=== PATIENT | female | born 2000 | race Caucasian/White ===

== ENCOUNTER 2023-10-18 11:45 | Outpatient (AMB) | payer OTHER, SELFPAY ==
--- NOTE | 2023-10-18 12:01 | A.OFFPC_ITS ---
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 Is last menstrual period known: Yes Last menstrual period: 10/03/23 Allergies No Known Allergies Allergy (Verified 10/18/23 12:08) Medication List - Last Reconciled 10/18/23 by Pablo Leonard MD levonorgestrel-ethinyl estrad 0.1-20 mg-mcg (Sronyx) tabs PO Tobacco use date assessed: 10/18/23 Dental Screening Dental Screen Date: 10/18/23 Did you have a dental visit in the last 12 months?: Yes Did you have a dental problem in the last 6 months where you did not have access to dental care?: No Was dental information given to patient?: Patient has dentist HPI ASSOCIATE PROGRAM MANAGER/Preventative Care HPI Details New Patient? ?? Prior PCP:?Karoline Hassan Last office visit/CPE:? a few mos. CPE > 1 yr Acute issue(s):? Low back pain. x 1 yr ?? PMHx:? Back pain. SurgHx:?None FHx:? Mom: DM, Graves. Dad: unknown. Sister mental health. 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 Uses Zin Nicotine. EtOH Rarely 1 gl wine weekly. No drugs PFSH Medical History (Updated 10/18/23 @ 12:46 by Lev Rodriguez) No pertinent past medical history Surgical History (Updated 10/18/23 @ 12:11 by Sharmin Soto CMA) No pertinent past surgical history Family History (Updated 10/18/23 @ 12:12 by Sharmin Soto CMA) Mother Diabetes Graves disease Sister Mental health disorder Social History (Updated 10/18/23 @ 12:15 by Sharmin Soto CMA) Household Members: Significant Other Both parents involved: No Caregiver staying overnight: No Housing: Apartment Are you a primary pet care worker to a significant other at home: No Do you presently have visiting nurse or other home services: No 75 years or older and lives alone: No Alcohol intake: current Alcohol intake frequency: other Comment: once a week Patient Tobacco Use Status: Former Tobacco user e-Cigarette/Vaping Use: Former Use Use of substances other than those prescribed or required for medical reasons: No Have you been hit, kicked, punched, or otherwise hurt by someone within the past year? If so, by whom?: No Do you feel safe in your current relationship?: Yes Is there a partner from a previous relationship who is making you feel unsafe now?: No Are you made to feel afraid or neglected: No Agree to transfusion: Yes Are you DNR?: No Advance Directives: No Advance Directives Information Provided: No Advance Directives on File: No Healthcare Proxy: No service: Yes Current occupational status: employed Cognitive needs: No Hearing needs: No Vision needs: Yes (Patient wears glasses.) Female Reproductive History Menstrual Date of last menstrual period: 10/03/23 Questionnaire PHQ-9 Over the last 2 weeks, how often have you been bothered by any of the following problems? 1. Little interest or pleasure in doing things: not at all 2. Feeling down, depressed, or hopeless: not at all 3. Trouble falling or staying asleep, or sleeping too much: not at all 4. Feeling tired or having little energy: not at all 5. Poor appetite or overeating: not at all 6. Feeling bad about yourself - or that you are a failure or have let yourself or your family down: not at all 7. Trouble concentrating on things, such as reading the newspaper or watching television: not at all 8. Moving or speaking so slowly that other people could have noticed. Or the opposite - being so fidgety or restless that you have been moving around a lot more than usual: not at all 9. Thoughts that you would be better off or of hurting yourself in some way: not at all Total score: 0 Depression Screening Interpretation: Negative Depression Screening Done: Yes 01449 - PHQ-9 Billing: Yes Source: Developed by Drs. Davon Boyd, Bella Draper, Bucky Turcios and colleagues, with an educational chemo from [employer]. Thrive Questionnaire Date Thrive assessed: 10/18/23 I am a: Patient What is your living situation today?: I have a steady place to live Within the past 12 months, did the food you bought not last and you didn't have the money to get more?: Never true Within the past 12 months, did you worry whether your food would run out before you got money to buy more?: Never true Do you have trouble paying for medicines?: No Do you have trouble getting transportation to medical appointments?: No Do you have trouble paying your heating and electricity bill?: No Do you have trouble taking care of your child, family member or friend?: No Do you have trouble with day-to-day activities such as bathing, preparing meals, shopping, managing finances, etc.?: No Are you currently unemployed and looking for a job?: No Are you interested in more education?: Yes THRIVE Score: 0 AUDIT C Alcohol Use Questionnaire (AUDIT-C) 1. How often do you have a drink containing alcohol?: 2-3 times a week (once a week) 2. How many drinks containing alcohol do you have on a typical day when you are drinking?: 1 or 2 3. How often do you have six or more drinks on one occasion?: Never Total Score: 3 GUNNER-7 AMB Questionnaire GUNNER-7 Date GUNNER - 7 assessed: 10/18/23 Feeling nervous, anxious, or on edge: 0 = Not at all Not being able to stop or control worryin = Not at all Worrying too much about different things: 0 = Not at all Trouble relaxin = Not at all Being so restless that it is hard to sit still: 0 = Not at all Becoming easily annoyed or irritable: 0 = Not at all Feeling afraid as if something awful might happen: 0 = Not at all Total GUNNER-7 score (0-4 normal; 5-9 mild; 10-14 moderate; 15-21 severe): 0 Source: Developed by Drs. Davon Boyd, Bella Draper, Bucky Turcios and colleagues, with an educational chemo from [employer]. GUNNER-7 Assessment Billing GUNNER-7 Assessment Tool: GUNNER-7 Assessment 54260 Review of Systems Const Denies chills, Denies fatigue, Denies fever(s), Denies headache(s) and Denies weakness ENT Denies dizziness and Denies headache(s) Card Denies dyspnea Resp Denies cough, Denies dyspnea, Denies wheezing and Denies other (shortness of breath) Musc Reports back pain, Denies numbness and Denies tingling Neuro Denies dizziness, Denies headache(s), Denies numbness, Denies tingling and Denies weakness Psych Denies anxiety and Denies depression Endo Denies fatigue Aller/Immun Denies wheezing Physical exam (Primary Care) Vital Signs: Last Vital Signs Pulse 69 10/18/23 12:04 BP 118/68 10/18/23 12:04 Pulse Ox 100 10/18/23 12:04 Oxygen Delivery Method Room Air 10/18/23 12:04 BMI result Body Mass Index 20.1 Tobacco/Smoking Status: Tobacco use Status Tobacco use date assessed 10/18/23 10/18/23 12:21 Patient Tobacco Use Status Former Tobacco user 10/18/23 12:21 e-Cigarette/Vaping Use Former Use 10/18/23 12:21 PHQ-9: PHQ-9 Score PHQ-9: Total score 0 10/18/23 12:37 Depression Screening Interpretation: Negative Thrive Assessment: Date of Thrive Assessment Date Thrive assessed 10/18/23 10/18/23 12:21 Const General: well developed; No acute distress Nutritional Appearance: well nourished Orientation/consciousness: patient oriented x3 HENMT Head: Yes normocephalic and Yes atraumatic Eyes General: appearance normal, both eyes and all related structures Pupils: Equal, round and reactive pupils present EOM: EOMs intact bilaterally Resp Effort & Inspection: normal respiratory effort Neuro General: patient oriented x3 and gait normal Cranial nerves: Yes Equal, round and reactive pupils present Extrem Other: Straight leg raises negative bilaterally Psych Affect: normal affect Assessment and Plan Assessment & Plan (1) Low back pain: Code(s): M54.50 - Low back pain, unspecified Plan: Chronic?recurrent?low?back?pain?which?oc casionally?radiates?down?right?buttock?and?right?leg. Straight?leg?raise?is?negative?bilaterally Likely?recurrent?muscle?strain Check?x-ray Check?inflammatory?marker Referred?for?physical?therapy She?can?use?OTC?ibuprofen?plus?ice?and?heat If?not?improving,?will?consider?advanced?imaging?and?referral?to?Ortho (2) Laboratory exam ordered as part of routine general medical examination: Code(s): Z00.00 - Encounter for general adult medical examination without abnormal findings Plan: Check?labs Orders: Orders Complete Blood Count Auto Diff Today Z00.00 - Encounter for general adult medical examination without abnormal findings Lipid Panel Today Z00.00 - Encounter for general adult medical examination without abnormal findings Microalbumin, Random (w Creat) Today I10 - Essential (primary) hypertension TSH reflex Free T4 Today Z00.00 - Encounter for general adult medical examination without abnormal findings CT NG by PCR Today Z11.3 - Encounter for screening for infections with a predominantly sexual mode of transmission Hepatitis B,C Profile Today Z11.3 - Encounter for screening for infections with a predominantly sexual mode of transmission XR lumbar spine 2-3V Today M54.50 - Low back pain, unspecified Erythrocyte Sedimentation Rate Today M54.50 - Low back pain, unspecified Comprehensive [place]. Panel Fast Today Z00.00 - Encounter for general adult medical examination without abnormal findings UA and rflx microscopic Today Z00.00 - Encounter for general adult medical examination without abnormal findings HIV Ab/Ag Today Z11.3 - Encounter for screening for infections with a predominantly sexual mode of transmission Syphilis Screen Today Z11.3 - Encounter for screening for infections with a predominantly sexual mode of transmission PT Evaluation and Treatment Today M54.50 - Low back pain, unspecified CRP High Sensitivity Today M54.50 - Low back pain, unspecified Coding Level of Care Code New Pt Level 3 (17744) Diagnoses Low back pain M54.50 Laboratory exam ordered as part of routine general medical examination Z00. Additional Codes GUNNER-7 Assessment Billing - GUNNER-7 Assessment Tool: GUNNER-7 Assessment 71709 ([id number])
[2023-10-18 12:04] VITALS: BP 118/68; PULSE 69; O2SAT 100; BMI 20.1
== END 2023-10-18 12:51 | disposition home or self-care (01) ==
PROVIDERS: PCP Family Medicine; Visit Provider Family Medicine
DX: M54.50 Low back pain, unspecified (principal)
CPT/HCPCS: 99203

== ENCOUNTER 2024-01-10 10:12 | Outpatient (REF) | payer OTHER, SELFPAY ==
[2024-01-10 11:31] LABS: MANUAL DIFF FLAG NO
[2024-01-10 11:38] LABS: Basophils Absolute Auto 0.1 X10*3/uL (0.0-0.2); Basophils Percent Auto 0.7 % (0-2); Eosinophils Absolute Auto 0.1 X10*3/uL (0.0-0.4); Eosinophils Percent Auto 1.5 % (0-4); Hematocrit 40.5 % (37.0-47.0); Hemoglobin 13.5 g/dl (12.0-16.0); Imm Gran Abs Auto 0.02 X10*3/uL (0.00-0.03); Imm Gran Pct Auto 0.3 % (0.0-0.4); Lymphocytes Percent Auto 43.2 % (20-40); Mean Corpuscular HGB Conc 33.3 g/dl (31.0-35.0); Mean Corpuscular Hemoglobin 31.9 pg (27.0-33.0); Mean Corpuscular Volume 95.7 fL (80.0-98.0); Mean Platelet Volume 10.9 fL (9.4-12.3); Monocytes Absolute Auto 0.3 X10*3/uL (0.1-1.2); Monocytes Percent Auto 4.7 % (2-11); Neutrophils Absolute Auto 3.4 x10*3/uL (2.0-8.3); Neutrophils Percent Auto 49.6 % (45-73); Platelet Count 333 X10*3/uL (160-400); Red Blood Count 4.23 X10*6/uL (4.20-5.50); Red Cell Distribution Width 12.1 % (11.0-16.0); White Blood Count 6.8 X10*3/uL (4.8-10.8)
[2024-01-10 12:18] LABS: Erythrocyte Sedimentation Rate 2 MM/HR (0-20)
[2024-01-10 12:40] LABS: Syphilis Screen Nonreactive (Nonreactive)
[2024-01-10 12:42] LABS: HBc Num1 0.15 S/CO (0.00-0.79); HBsAGNum1 0.28 S/CO (0.00-0.99); HIV AB/AG Nonreactive (Nonreactive); HIV Num 1 0.05 S/CO (0.00-0.99); Hepatitis B Core Antibody Nonreactive (Nonreactive); Hepatitis B Surface Antigen Negative (Negative); ~HepC Num1 0.11 S/CO (0.00-0.79); ~Hepatitis B Surface Antibody REACTIVE (Nonreactive); ~Hepatitis C Antibody Nonreactive (Nonreactive)
[2024-01-10 12:43] LABS: Alanine Aminotransferase 8 U/L (0-31); Albumin Level 4.3 g/dL (3.5-5.0); Alkaline Phosphatase 54 U/L (39-117); Anion Gap 12 (12-20); Aspartate Amino Transferase 16 U/L (5-31); Bilirubin Total 0.5 mg/dL (0.0-1.0); Blood Urea Nitrogen 11 mg/dL (9-16); Calcium 9.4 mg/dL (8.4-10.2); Carbon Dioxide 25 mmol/L (22-29); Chloride 107 mmol/L (96-108); Cholesterol 204 mg/dL (<200); Estimated Glomerular Filt Rate > 60; Glucose Fasting 82 mg/dL (60-99); HDL Cholesterol 51 mg/dL (>40); LDL Cholesterol Calculated 134 mg/dL (<100); Potassium 3.7 mmol/L (3.3-5.1); Sodium 140 mmol/L (135-145); Total Protein 7.6 g/dL (6.5-8.0); Triglycerides 96 mg/dL (<150)
[2024-01-10 12:44] LABS: TSH reflex Free T4 0.84 uIU/mL (0.32-4.0)
[2024-01-11 08:48] LABS: CRP High Sensitivity 0.3 mg/L
== END 2024-01-10 10:13 | disposition home or self-care (01) ==
LOC: HO.WFDLDS 10:12
PROVIDERS: Visit Provider Family Medicine
DX: Z00.00 Encounter for general adult medical examination without abnormal findings (principal); Z11.3 Encounter for screening for infections with a predominantly sexual mode of transmission; M54.50 Low back pain, unspecified
CPT/HCPCS: 36415; 80053; 80061; 84443; 85025; 85652; 86141; 86704; 86706; 86780; 86803; 87340; 87389

== ENCOUNTER 2024-01-12 11:18 | Outpatient (AMB) | payer OTHER, SELFPAY ==
--- NOTE | 2024-01-12 11:26 | MHC.PC.OV ---
Vital Signs 01/12/24 11:30 Height 5 ft 8 in Weight 140 lb 4 oz BMI 21.3 BP 115/63 Blood Pressure Location Rt brachial Position Sitting Respiration 16 Pulse 74 Pulse Source Pulse Oximeter Temp 97.3 F Temp Source Tympanic Pulse Oximetry (%) 98 Oxygen Delivery Method Room Air Intake Visit Reasons: Extended exam with f/u labs and health maint. Intake Note: CPE Is last menstrual period known: Yes Last menstrual period: 02/02/24 Post menopausal: No Patient : No Allergies No Known Allergies Allergy (Verified 01/12/24 11:29) Medication List - Last Reconciled 01/12/24 by Pablo Leonard MD levonorgestrel-ethinyl estrad 0.1-20 mg-mcg (Sronyx) 1 tab PO DAILY 84 days Tobacco use date assessed: 10/18/23 Dental Screening Dental Screen Date: 01/12/24 Did you have a dental visit in the last 12 months?: Yes Did you have a dental problem in the last 6 months where you did not have access to dental care?: No Was dental information given to patient?: Patient has dentist HPI Extended exam with f/u labs and health maint. HPI Details 23 y/o female presents for a CPE with f/u labs and health maint. Labs drawn 01/10/24. Reviewed labs with pt. Triglycerides 96. TC 204. LDL 134. HDL 51. HPI Comments History of Present Illness Details Documentation assistance for Pablo Leonard MD, was provided by Lev Rodriguez, Wealth Management Advisor on 01/12/2024 at 11:50 AM EST. I, Dr. Leonard, have read, observed, and verified documentation. [facility] Medical History (Updated 01/12/24 @ 12:01 by Pablo Leonard MD) No pertinent past medical history Surgical History (Updated 10/18/23 @ 12:11 by Sharmin Soto CMA) No pertinent past surgical history Family History (Updated 10/18/23 @ 12:12 by Sharmin Soto CMA) Mother Diabetes Graves disease Sister Mental health disorder Social History (Updated 10/18/23 @ 12:15 by Sharmin Soto CMA) Household Members: Significant Other Both parents involved: No Caregiver staying overnight: No Housing: Apartment Are you a primary cardiac care unit nurse to a significant other at home: No Do you presently have visiting nurse or other home services: No 75 years or older and lives alone: No Alcohol intake: current Alcohol intake frequency: other Comment: once a week Patient Tobacco Use Status: Former Tobacco user e-Cigarette/Vaping Use: Former Use Agree to transfusion: Yes service: Yes Current occupational status: employed Cognitive needs: No Hearing needs: No Vision needs: Yes (Patient wears glasses.) Female Reproductive History Menstrual Date of last menstrual period: 02/02/24 Questionnaire PHQ-9 Over the last 2 weeks, how often have you been bothered by any of the following problems? 1. Little interest or pleasure in doing things: not at all 2. Feeling down, depressed, or hopeless: not at all 3. Trouble falling or staying asleep, or sleeping too much: not at all 4. Feeling tired or having little energy: not at all 5. Poor appetite or overeating: not at all 6. Feeling bad about yourself - or that you are a failure or have let yourself or your family down: not at all 7. Trouble concentrating on things, such as reading the newspaper or watching television: not at all 8. Moving or speaking so slowly that other people could have noticed. Or the opposite - being so fidgety or restless that you have been moving around a lot more than usual: not at all 9. Thoughts that you would be better off or of hurting yourself in some way: not at all Total score: 0 Depression Screening Interpretation: Negative Depression Screening Done: Yes 06734 - PHQ-9 Billing: Yes Source: Developed by Drs. Davon Boyd, Bella Draper, Bucky Turcios and colleagues, with an educational chemo from [employer]. Thrive Questionnaire Date Thrive assessed: 01/12/24 I am a: Patient What is your living situation today?: I have a steady place to live Within the past 12 months, did the food you bought not last and you didn't have the money to get more?: Never true Within the past 12 months, did you worry whether your food would run out before you got money to buy more?: Never true Do you have trouble paying for medicines?: No Do you have trouble getting transportation to medical appointments?: No Do you have trouble paying your heating and electricity bill?: No Do you have trouble taking care of your child, family member or friend?: No Do you have trouble with day-to-day activities such as bathing, preparing meals, shopping, managing finances, etc.?: No Are you currently unemployed and looking for a job?: No Are you interested in more education?: Yes Please select the resources that you would like help with: None Currently or been in a relationship where the following occur: No concerns reported THRIVE Score: 0 AUDIT C Alcohol Use Questionnaire (AUDIT-C) 1. How often do you have a drink containing alcohol?: Monthly or less 2. How many drinks containing alcohol do you have on a typical day when you are drinking?: 1 or 2 3. How often do you have six or more drinks on one occasion?: Never Total Score: 1 GUNNER-7 AMB Questionnaire GUNNER-7 Date GUNNER - 7 assessed: 01/12/24 Feeling nervous, anxious, or on edge: 0 = Not at all Not being able to stop or control worryin = Not at all Worrying too much about different things: 0 = Not at all Trouble relaxin = Not at all Being so restless that it is hard to sit still: 0 = Not at all Becoming easily annoyed or irritable: 0 = Not at all Feeling afraid as if something awful might happen: 0 = Not at all Total GUNNER-7 score (0-4 normal; 5-9 mild; 10-14 moderate; 15-21 severe): 0 Source: Developed by Drs. Davon Boyd, Bella Draper, Bucky Trucios and colleagues, with an educational chemo from [employer]. GUNNER-7 Assessment Billing GUNNER-7 Assessment Tool: GUNNER-7 Assessment 12864 Review of Systems Const Denies chills, Denies fatigue, Denies fever(s), Denies headache(s) and Denies weakness Eyes Denies change in vision ENT Denies dizziness, Denies headache(s), Denies hearing loss, Denies nasal congestion, Denies sinus pain, Denies sinus pressure and Denies sore throat Card Denies chest pain, Denies lightheadedness, Denies dyspnea and Denies other (palpitations) Resp Denies cough, Denies dyspnea and Denies wheezing GI Denies abdominal pain, Denies melena, Denies hematochezia, Denies change in bowel habits, Denies dyspepsia and Denies nausea Denies hematuria and Denies dysuria Musc Denies abnormal gait, Denies myalgias, Denies arthralgias, Denies numbness and Denies tingling Skin/Breast Denies rash, Denies unusual bruising and Denies wounds Neuro Denies abnormal gait, Denies dizziness, Denies headache(s), Denies memory loss, Denies numbness, Denies Sensory deficit (Neuro), Denies tingling and Denies weakness Psych Denies anxiety, Denies depression and Denies memory loss Endo Denies cold intolerance, Denies fatigue, Denies heat intolerance, Denies polydipsia and Denies polyuria Luc/Lymph Denies easy bleeding and Denies easy bruising Aller/Immun Denies wheezing Physical exam (Primary Care) Vital Signs: Last Vital Signs Temp 97.3 F 01/12/24 11:30 Pulse 74 01/12/24 11:30 Resp 16 01/12/24 11:30 BP 115/63 01/12/24 11:30 Pulse Ox 98 01/12/24 11:30 Oxygen Delivery Method Room Air 01/12/24 11:30 BMI result Body Mass Index 21.3 Tobacco/Smoking Status: Tobacco use Status Tobacco use date assessed 10/18/23 01/12/24 11:33 Patient Tobacco Use Status Former Tobacco user 01/12/24 11:33 e-Cigarette/Vaping Use Former Use 01/12/24 11:33 PHQ-9: PHQ-9 Score PHQ-9: Total score 0 01/12/24 12:02 Depression Screening Interpretation: Negative Thrive Assessment: Date of Thrive Assessment Date Thrive assessed 01/12/24 01/12/24 11:33 Currently or been in a relationship where the following occur: No concerns reported Const General: no acute distress, well developed, alert and awake Nutritional Appearance: well nourished Orientation/consciousness: patient oriented x3 HENMT Head: Yes normocephalic and Yes atraumatic Ears: hearing grossly normal bilaterally and TM's normal bilaterally General nose exam: Normal external nose present and Normal nares present Mouth: Normal oral and palatal mucosa present and moist mucous membranes Teeth and gingiva: dentition normal Throat: Yes posterior oropharynx normal Eyes General: appearance normal, both eyes and all related structures Pupils: Equal, round and reactive pupils present and Pupil accommodation reflex normal EOM: EOMs intact bilaterally Neck Neck: Yes normal visual inspection, Yes no lymphadenopathy and Yes trachea midline Thyroid: Thyroid normal Carotids: no bruits Lymphatic: no lymphadenopathy noted Chest Chest palpation & inspection: normal inspection of the chest Resp Effort & Inspection: normal respiratory effort Auscultation: clear to auscultation bilaterally Cardio Rate: regular rate Rhythm: regular rhythm Heart sounds: S1 normal heart sound present, S2 normal heart sound present, no gallops, no murmurs and no rubs Bruits: no abdominal aortic bruits and no carotid bruits GI Palpation (GI): No Abdominal aortic bruit present, Soft to palpation, nontender, No hepatosplenomegaly present and No Rebound tenderness present Auscultation: normal bowel sounds General: Yes no CVA tenderness Back/Spine/Pelvis Back: no CVA tenderness Cervical Spine: cervical ROM normal and No Cervical spine tenderness Thoracic/Lumbar Spine: thoraco-lumbar ROM normal, No pain with thoraco-lumbar ROM, No thoracic spinal tenderness and No lumbar spinal tenderness Skin Lesions: no lesions Rashes: no rashes Trauma: no lacerations or abrasions Wounds: no wounds Nails: normal Neuro General: patient oriented x3 Cranial nerves: Yes Equal, round and reactive pupils present Cognition (Neuro): normal cognition Gait exam (Neuro): Normal gait present Motor exam (neuro): 5/5 motor strength present throughout Sensory Exam: No Sensory deficit (Neuro) Deep tendon reflexes (DTR's): Right patellar reflex intensity grade: 2+ and Left patellar reflex intensity grade: 2+ Extrem General: Yes normal to inspection and No edema Psych Appearance: grossly normal Affect: normal affect Attitude: cooperative Thought process: Normal thought process present Assessment and Plan Assessment & Plan (1) Adult general medical exam: Code(s): Z00.00 - Encounter for general adult medical examination without abnormal findings Plan: 23-year-old?female?presents?for?complete?physical?exam Exam?within?normal?limits Encouraged?healthy?diet?with?active?lifestyle?and?plenty?of?exercise (2) Hyperlipidemia: Code(s): E78.5 - Hyperlipidemia, unspecified Plan: LDL?cholesterol?is?high Encouraged?a?diet?lower?in?saturated?fats?and?cholesterol We?can?follow-up?on?this?in?a?few?months (3) Screening for STD (sexually transmitted disease): Code(s): Z11.3 - Encounter for screening for infections with a predominantly sexual mode of transmission Plan: Screening?all?negative (4) Elevated LDL cholesterol level: Code(s): E78.00 - Pure hypercholesterolemia, unspecified Orders: Orders Lipid Panel Today E78.5 - Hyperlipidemia, unspecified, Z00.00 - Encounter for general adult medical examination without abnormal findings Comprehensive [place]. Panel Fast Today E78.5 - Hyperlipidemia, unspecified, Z00.00 - Encounter for general adult medical examination without abnormal findings Medications: New levonorgestrel-ethinyl estrad 0.1-20 mg-mcg (Sronyx) 1 tab PO DAILY 84 days 84 tabs 3RF Coding Level of Care Code Est Pt Level 3 (30833) Est Pt Prev Care 18-39y(85534) Diagnoses Adult general medical exam Z00.00 Hyperlipidemia E78.5 Screening for STD (sexually transmitted disease) Z11.3 Elevated LDL cholesterol level E78.00 Additional Codes GUNNER-7 Assessment Billing - GUNNER-7 Assessment Tool: GUNNER-7 Assessment 20173 ([id number])
[2024-01-12 11:30] VITALS: BP 115/63; PULSE 74; RESP 16; TEMP 36.3; O2SAT 98; BMI 21.3
== END 2024-01-12 11:59 | disposition home or self-care (01) ==
PROVIDERS: PCP Family Medicine; Visit Provider Family Medicine
DX: Z00.00 Encounter for general adult medical examination without abnormal findings (principal); E78.5 Hyperlipidemia, unspecified; Z11.3 Encounter for screening for infections with a predominantly sexual mode of transmission; E78.00 Pure hypercholesterolemia, unspecified
CPT/HCPCS: 99213; 99395